=== PATIENT | female | born 1955 | race American Indian/Alaskan Native ===

== ENCOUNTER 2016-07-19 09:01 | Day surgery (SDC) | payer BC ==
[2016-07-19 10:20] VITALS: BP 124/68
--- NOTE | 2016-07-19 12:02 | XRay Report ---
AP CHEST: HISTORY: PICC placement AP view of the chest demonstrates a normal mediastinal and cardiac contour with clear lungs and normal bony and soft tissue structures. Right arm PICC terminates at the cavoatrial junction. IMPRESSION: Unremarkable AP chest.
== END 2016-07-19 12:15 | disposition home or self-care (01) ==
LOC: OPU 09:01
PROVIDERS: ATTEND Student in an Organized Health Care Education/Training Program
DX: K90.9 Intestinal malabsorption, unspecified (principal)
CPT/HCPCS: 36569; 71010